=== PATIENT | male | born 1960 | race African-American/Black ===

== ENCOUNTER 2018-06-19 13:20 | Inpatient (IN) | payer OTHER ==
[2018-06-19 14:19] VITALS: BMI 22.9
--- NOTE | 2018-06-19 19:31 | HP ---
CIWA Score Nausea/Vomitin-No Nausea/No Vomiting Muscle Tremors: 2 Anxiety: 2 Agitation: 3 Paroxysmal Sweats: 2 Orientation: 0-Oriented Tacttile Disturbances: 1-Very Mild Itch/Numbness Auditory Disturbances: 0-None Visual Disturbances: 2-Mild Sensitivity Headache: 0-None Present CIWA-Ar Total Score: 12 - Admission Criteria OASAS Guidelines: Admission for Medically Managed Detox: Requires at least one of the followin. CIWA greater than 12 2. Seizures within the past 24 hours 3. Delirium tremens within the past 24 hours 4. Hallucinations within the past 24 hours 5. Acute intervention needed for co occurring medical disorder 6. Acute intervention needed for co occurring psychiatric disorder 7. Severe withdrawal that cannot be handled at a lower level of care (continued vomiting, continued diarrhea, abnormal vital signs) requiring intravenous medication and/or fluids 8. Patient presents the following: CIWA greater than 12, Acute intervention needed for co-occurring med or psych disorder Admission Criteria Met: Admission criteria met Admission ROS BHS - HPI Chief Complaint: "to self aid" Allergies/Adverse Reactions: Allergies Allergy/AdvReac Type Severity Reaction Status Date / Time Fish Containing Products Allergy Severe Verified 06/19/18 17:26 History of Present Illness: 58 yo male with hx of nicotine, alcohol, crack /cocaine and marijuana dependence is here seeking detox. Last detox one month ago, does not recall the name of the facility. Denies medical problems. Reports hx of schizophrenia. Denies suicidal / homicidal ideation. Longest period two years Exam Limitations: No Limitations - Ebola screening Have you traveled outside of the country in the last 21 days: No Have you had contact with anyone from an Ebola affected area: No Have you been sick,other than usual withdrawal symptoms: No Do you have a fever: No - Review of Systems Constitutional: Loss of Appetite, Changes in sleep, Weakness EENT: reports: No Symptoms Reported, See HPI Respiratory: reports: No Symptoms reported Cardiac: reports: No Symptoms Reported GI: reports: Poor Appetite, Poor Fluid Intake : reports: No Symptoms Reported Musculoskeletal: reports: No Symptoms Reported Neuro: reports: Weakness Endocrine: reports: Increased Thirst Hematology: reports: No Symptoms Reported Psychiatric: reports: Orientated x3, Agitated Other Systems: Reviewed and Negative Patient History - Patient Medical History Hx Anemia: No Hx Asthma: No Hx Chronic Obstructive Pulmonary Disease (COPD): No Hx Cancer: No Hx Cardiac Disorders: No Hx Congestive Heart Failure: No Hx Hypertension: No Hx Hypercholesterolemia: No Hx Pacemaker: No HX Cerebrovascular Accident: No Hx Seizures: No Hx Dementia: No Hx Diabetes: No Hx Gastrointestinal Disorders: No Hx Liver Disease: No Hx Genitourinary Disorders: No Hx Sexually Transmitted Disorders: No Hx Renal Disease (ESRD): No Hx Thyroid Disease: No Hx Human Immunodeficiency Virus (HIV): No Hx Hepatitis C: No Hx Depression: Yes Hx Suicide Attempt: No Hx Schizophrenia: Yes - Patient Surgical History Past Surgical History: No Hx Neurologic Surgery: No Hx Cataract Extraction: No Hx Cardiac Surgery: No Hx Lung Surgery: No Hx Breast Surgery: No Hx Breast Biopsy: No Hx Abdominal Surgery: No Hx Appendectomy: No Hx Cholecystectomy: No Hx Genitourinary Surgery: No Hx Section: No Hx Orthopedic Surgery: No Anesthesia Reaction: No - PPD History Previous Implant?: No Documented Results: Negative w/o proof PPD to be Administered?: Yes - Smoking Cessation Smoking history: Current every day smoker Have you smoked in the past 12 months: Yes Aproximately how many cigarettes per day: 5 Hx Chewing Tobacco Use: No Initiated information on smoking cessation: Yes 'Breaking Loose' booklet given: 06/19/18 - Substance & Tx. History Hx Alcohol Use: Yes Hx Substance Use: No Substance Use Type: Alcohol, Cocaine, Marijuana - Substances Abused Alcohol Route: Oral Frequency: Daily Amount used: LIQUOR- 2 PINTS, BEER- 2 SIX PACK Age of first use: 13 Date of Last Use: 06/18/18 Crack Route: Smoking Frequency: Daily Amount used: $60 Age of first use: 25 Date of Last Use: 06/17/18 Marijuana/Hashish Route: Smoking Frequency: Daily Amount used: 1 BLUNT Age of first use: 12 Date of Last Use: 06/18/18 Family Disease History - Family Disease History Family History: Denies Admission Physical Exam S - Vital Signs Vital Signs: Vital Signs - 24 hr 06/19/18 14:14 Temperature 97.9 F Pulse Rate 86 Respiratory 18 Rate Blood Pressure 115/69 - Physical General Appearance: Yes: Disheveled, Thin, Irritable HEENTM: Yes: EOMI, Hearing grossly Normal, Normal ENT Inspection, Normocephalic , Normal Voice, SUE, Pharynx Normal, Tm's normal Respiratory: Yes: Chest Non-Tender, Lungs Clear, Normal Breath Sounds, No Respiratory Distress, No Accessory Muscle Use Neck: Yes: Within Normal Limits Breast: Yes: Breast Exam Deferred Cardiology: Yes: Regular Rhythm, Regular Rate Abdominal: Yes: Normal Bowel Sounds, Non Tender, Flat, Soft Genitourinary: Yes: Within Normal Limits Back: Yes: Normal Inspection Musculoskeletal: Yes: full range of Motion, Gait Steady, Pelvis Stable Extremities: Yes: Normal Capillary Refill, Normal Inspection, Normal Range of Motion, Non-Tender Neurological: Yes: carcass washer II-XII NML intact, Fully Oriented, Alert, Motor Strength 5/5, Depressed Affect Integumentary: Yes: Normal Color, Warm, Moist Lymphatic: Yes: Within Normal Limits - Diagnostic (1) Alcohol dependence with uncomplicated withdrawal Current Visit: Yes Status: Acute (2) Cocaine dependence Current Visit: Yes Status: Acute Qualifiers: Substance use status: uncomplicated Qualified Code(s): F14.20 - Cocaine dependence, uncomplicated (3) Marijuana dependence Current Visit: Yes Status: Acute (4) Nicotine dependence Current Visit: Yes Status: Chronic Qualifiers: Nicotine product type: cigarettes (5) At risk for dehydration due to poor fluid intake Current Visit: Yes Status: Acute Cleared for Admission S - Detox or Rehab [facility] Level of Care: Medically Managed Detox Regimen/Protocol: Librium [facility] Breath Alcohol Content Breath Alcohol Content: 0 Urine Drug Screen - Results Drug Screen Negative: No Urine Drug Screen Results: THC-Marijuana, KWAKU-Cocaine Inpatient Rehab Admission - Rehab Decision to Admit Inpatient rehab admission?: No
[2018-06-19] MEDS ORDERED: P-EPHED 60MG/TRIPROLIDI 2.5MG TABLET PO PRN (19:34)
[2018-06-19] MEDS ORDERED: MAG HYDROX/AL HYDROX/SIMETH 30 ML UNIT-DOSE CUP PO PRN (19:34)
[2018-06-19] MEDS ORDERED: MAGNESIUM CITRATE 300 ML BOTTLE PO PRN (19:34)
[2018-06-19] MEDS ORDERED: guaiFENesin/D-METHORPHAN HB 10 ML UNIT-DOSE CUPS PO PRN (19:34)
[2018-06-19] MEDS ORDERED: MAGNESIUM HYDROX 2400MG/30ML ORAL SUSPENSION 30 ML CUP PO PRN (19:34)
[2018-06-19] MEDS ORDERED: IBUPROFEN 400 MG TABLET (FP) PO PRN (19:34)
[2018-06-19] MEDS ORDERED: hydrOXYzine PAMOATE 50 MG CAPSULE (FP) PO PRN (19:34)
[2018-06-19] MEDS ORDERED: NICOTINE POLACRILEX 2 MG GUM BC PRN (19:34)
[2018-06-19] MEDS ORDERED: chlordiazePOXIDE HCL 25 MG CAPSULE PO PRN (19:34)
[2018-06-19] MEDS ORDERED: MENTHOL/PHENOL 1 EACH UD MM PRN (19:34)
[2018-06-19] MEDS ORDERED: ACETAMINOPHEN 325 MG TABLET (FP) PO PRN (19:34)
[2018-06-19] MEDS ORDERED: LOPERAMIDE HCL 2 MG CAPSULE PO PRN (19:34)
[2018-06-19] MEDS ORDERED: MELATONIN 5 MG TABLETS PO PRN (22:00)
[2018-06-19] MEDS: chlordiazePOXIDE HCL 25 MG CAPSULE PO SCH (23:07)
[2018-06-19] MEDS: THIAMINE HCL 100 MG TABLET (FP) PO SCH (23:07)
[2018-06-19 23:27] LABS: URINE APPEARANCE CLEAR; URINE BILIRUBIN NEGATIVE (<2.0 mg/dL); URINE COLOR YELLOW; URINE GLUCOSE (UA) NEGATIVE (NEGATIVE); URINE KETONE NEGATIVE (NEGATIVE); URINE LEUK ESTERASE NEGATIVE (NEGATIVE); URINE NITRITE NEGATIVE (NEGATIVE); URINE PROTEIN NEGATIVE (NEGATIVE)
[2018-06-20] MEDS: chlordiazePOXIDE HCL 25 MG CAPSULE PO SCH ×4 (06:13→22:48)
--- NOTE | 2018-06-20 07:35 | CONSULT ---
[facility] Psychiatric Consult - Data Date of interview: 06/20/18 Admission source: [facility] Identifying data: 58 yo male with hx of nicotine, alcohol, crack /cocaine and marijuana dependence is here seeking detox. Last detox one month ago, does not recall the name of the facility. Denies medical problems. Reports hx of schizophrenia. Denies suicidal / homicidal ideation. Longest period two years. Exam Limitations: No Limitations Substance Abuse History: y: Current every day smoker. Have you smoked in the past 12 months: Yes. Aproximately how many cigarettes per day: 5. Hx Chewing Tobacco Use: No. Initiated information on smoking cessation: Yes. 'Breaking Loose' booklet given: 06/19/18. - Substance & Tx. History. Hx Alcohol Use: Yes. Hx Substance Use: No. Substance Use Type: Alcohol, Cocaine, Marijuana. - Substances Abused. Alcohol. Route: Oral. Frequency: Daily. Amount used : LIQUOR- 2 PINTS, BEER- 2 SIX PACK. Age of first use: 13. Date of Last Use: 06/18/18. Crack. Route: Smoking. Frequency: Daily. Amount used: $60. Age of first use: 25. Date of Last Use: 06/17/18. Marijuana/Hashish. Route : Smoking. Frequency: Daily. Amount used: 1 BLUNT. Age of first use: 12. Date of Last Use: 06/18/18 Medical History: Denies any significant medical issues Psychiatric History: Patient has a history of Schizophrenia with most recent psychiatric admission on 2015, patient does not remeber when and where, reports hearing voices at that time, denies suicidal and homicidal history, As per lalito patient has been taking : Remeron 45mg po qhs. Risperdal 1mg po bid. Patioent refusing to rerstart psychiatric medications Physical/Sexual Abuse/Trauma History: Denies, unclear Additional Comment: Remeron 45mg po qhs. Risperdal 1mg po bid. Patioent refusing to rerstart psychiatric medications Mental Status Exam - Mental Status Exam Alert and Oriented to: Person Cognitive Function: Fair Patient Appearance: Unkempt Mood: Anxious Affect: Constricted Patient Behavior: Guarded, Distractible Speech Pattern: Pressured Voice Loudness: Mildly Loud Thought Process: Circumstantial, Goal Oriented Hallucinations: Denies Suicidal Ideation: Denies Homicidal Ideation: Denies Insight/Judgement: Fair Sleep: Difficulty falling asleep Appetite: Fair Muscle strength/Tone: Normal Gait/Station: Shuffling Additional Comments: Remeron 45mg po qhs. Risperdal 1mg po bid. Patioent refusing to rerstart psychiatric medications Psychiatric Findings - Problem List ([place] 1, 2,3) (1) Drug-induced mood disorder Current Visit: Yes Status: Acute (2) Schizophrenia Current Visit: Yes Status: Acute (3) Alcohol dependence with uncomplicated withdrawal Current Visit: Yes Status: Acute (4) Cocaine dependence Current Visit: Yes Status: Acute Qualifiers: Substance use status: uncomplicated Qualified Code(s): F14.20 - Cocaine dependence, uncomplicated (5) Marijuana dependence Current Visit: Yes Status: Acute (6) Nicotine dependence Current Visit: Yes Status: Chronic Qualifiers: Nicotine product type: cigarettes (7) Non compliance w medication regimen Current Visit: Yes Status: Acute - Initial Treatment Plan Initial Treatment Plan: Consider to restart : Remeron 45mg po qhs. Risperdal 1mg po bid. Patioent refusing to rerstart psychiatric medications at this moment
[2018-06-20 10:34] LABS: HEMATOCRIT 39.5 % (35.4-49); HEMOGLOBIN 13.2 GM/dL (11.7-16.9); MCHC 33.4 g/dl (32.0-35.9); MEAN CELL VOLUME 89.8 fl (80-96); MEAN PLT VOLUME 8.1 fl (7.5-11.1); PLATELET COUNT 236 K/MM3 (134-434); RDW 13.9 % (11.9-15.9)
[2018-06-20 10:46] LABS: ALK PHOS 78 U/L (45-117); ANION GAP 8 MMOL/L (8-16); BILIRUBIN,TOTAL 0.2 mg/dL (0.2-1); BLOOD UREA NITROGEN 14 mg/dL (7-18); CALCIUM 8.5 mg/dL (8.5-10.1); CHLORIDE 105 mmol/L (98-107); CO2 27 mmol/L (21-32); GLUCOSE,RANDOM 114 mg/dL (74-106); SGOT/AST 14 U/L (15-37); SGPT/ALT 18 U/L (13-61); SODIUM 140 mmol/L (136-145); TOT PROT 6.4 g/dl (6.4-8.2)
[2018-06-20] MEDS: PRENATAL VITAMINS W/ FOLIC ACID TABLET (FP) PO SCH (11:40)
[2018-06-20] MEDS: NICOTINE 14 MG/24 HOURS TOPICAL PATCH TD SCH (11:40)
[2018-06-20] MEDS: risperiDONE 1 MG TABLET (FP) PO SCH ×2 (13:38→22:50)
[2018-06-20] MEDS: MIRTAZAPINE 15 MG TABLET (FP) PO SCH (13:38)
--- NOTE | 2018-06-20 14:20 | PN ---
[facility] CIWA - CIWA Score Nausea/Vomitin-No Nausea/No Vomiting Muscle Tremors: None Anxiety: 2 Agitation: 0-Normal Activity Paroxysmal Sweats: 3 Orientation: 0-Oriented Tacttile Disturbances: 2-Mild Itch/Numbness/Burn Auditory Disturbances: 0-None Visual Disturbances: 2-Mild Sensitivity Headache: 0-None Present CIWA-Ar Total Score: 9 BHS Progress Note (SOAP) Subjective: Fatigue, Sweating, Anxious. Objective: PATIENT A & O X 2 (UNCERTAIN ABOUT CURRENT DAY / DATE). PATIENT OBSERVED AMBULATING ON UNIT. IN NO ACUTE DISTRESS. 06/20/18 14:22 Vital Signs Temperature 98.3 F 06/20/18 13:13 Pulse Rate 76 06/20/18 13:13 Respiratory Rate 18 06/20/18 13:13 Blood Pressure 124/67 06/20/18 13:13 O2 Sat by Pulse Oximetry (%) Laboratory Tests 06/19/18 06/20/18 06/20/18 23:20 07:00 07:00 WBC 8.0 RBC 4.40 Hgb 13.2 Hct 39.5 MCV 89.8 MCH 30.0 MCHC 33.4 RDW 13.9 Plt Count 236 MPV 8.1 Sodium Potassium Chloride Carbon Dioxide Anion Gap BUN Creatinine Creat Clearance w eGFR Random Glucose Calcium Total Bilirubin AST ALT Alkaline Phosphatase Total Protein Albumin Urine Color Yellow Urine Appearance Clear Urine pH 6.0 Ur Specific [place] 1.023 Urine Protein Negative Urine Glucose (UA) Negative Urine Ketones Negative Urine Blood Negative Urine Nitrite Negative Urine Bilirubin Negative Urine Urobilinogen 2.0 Ur Leukocyte Esterase Negative RPR Titer HIV 1&2 Antibody Screen Negative HIV P24 Antigen Negative 06/20/18 06/20/18 07:00 07:00 WBC RBC Hgb Hct MCV MCH MCHC RDW Plt Count MPV Sodium 140 Potassium 4.0 Chloride 105 Carbon Dioxide 27 Anion Gap 8 BUN 14 Creatinine 1.0 Creat Clearance w eGFR > 60 Random Glucose 114 H Calcium 8.5 Total Bilirubin 0.2 AST 14 L ALT 18 Alkaline Phosphatase 78 Total Protein 6.4 Albumin 3.0 L Urine Color Urine Appearance Urine pH Ur Specific [place] Urine Protein Urine Glucose (UA) Urine Ketones Urine Blood Urine Nitrite Urine Bilirubin Urine Urobilinogen Ur Leukocyte Esterase RPR Titer Nonreactive HIV 1&2 Antibody Screen HIV P24 Antigen LABS NOTED. Assessment: 06/20/18 14:22 WITHDRAWAL SYMPTOMS. Plan: CONTINUE DETOX. INCREASE DAILY PO FLUID INTAKE. PATIENT REPORTS THAT LIBRIUM IS CAUSING HIM TO FEEL EXCESSIVELY DROWSY. UPCOMING DOSAGES OF LIBRIUM MODIFIED TO SLIGHTLY LOWER DOSES FOR REMAINDER OF DETOX REGIMEN.
[2018-06-20] MEDS: THIAMINE HCL 100 MG TABLET (FP) PO SCH (22:48)
[2018-06-20] MEDS ORDERED: chlordiazePOXIDE HCL 25 MG CAPSULE PO SCH (23:00)
[2018-06-21] MEDS: chlordiazePOXIDE 5 MG CAPSULE PO SCH ×4 (05:50→22:56)
--- NOTE | 2018-06-21 09:35 | PN ---
S CIWA - CIWA Score Nausea/Vomitin Muscle Tremors: 2 Anxiety: 2 Agitation: 2 Paroxysmal Sweats: 1-Minimal Palms Moist Orientation: 0-Oriented Tacttile Disturbances: 1-Very Mild Itch/Numbness Auditory Disturbances: 1-Very Mild Visual Disturbances: 0-None Headache: 2-Mild CIWA-Ar Total Score: 13 BHS Progress Note (SOAP) Subjective: alert,irritable,interrupted sleep,tremor Objective: 06/21/18 09:34 Vital Signs Temperature 98.9 F 06/21/18 09:22 Pulse Rate 77 06/21/18 09:22 Respiratory Rate 18 06/21/18 09:22 Blood Pressure 119/71 06/21/18 09:22 O2 Sat by Pulse Oximetry (%) Assessment: 06/21/18 09:35 withdrawal symptom Plan: continue detox,fasting glucose in am ,initial glucose is 111
--- NOTE | 2018-06-21 10:13 | EKG ---
Test Reason : Blood Pressure : / mmHG Vent. Rate : 077 BPM Atrial Rate : 077 BPM P-R Int : 152 ms QRS Dur : 088 ms QT Int : 392 ms P-R-T Axes : 065 082 065 degrees QTc Int : 443 ms NORMAL SINUS RHYTHM EARLY REPOLARIZATION NO PREVIOUS ECGS AVAILABLE Confirmed by GUIDO SHORT MD ([id number]) on 06/21/2018 10:13:35 AM Referred By: Confirmed By:GUIDO SHORT MD
[2018-06-21] MEDS: risperiDONE 1 MG TABLET (FP) PO SCH ×2 (10:29→22:58)
[2018-06-21] MEDS: PRENATAL VITAMINS W/ FOLIC ACID TABLET (FP) PO SCH (10:29)
[2018-06-21] MEDS: MIRTAZAPINE 15 MG TABLET (FP) PO SCH (10:30)
[2018-06-21] MEDS: NICOTINE 14 MG/24 HOURS TOPICAL PATCH TD SCH (10:30)
[2018-06-21] MEDS: THIAMINE HCL 100 MG TABLET (FP) PO SCH (22:55)
[2018-06-21] MEDS ORDERED: chlordiazePOXIDE 5 MG CAPSULE PO SCH (23:00)
[2018-06-22] MEDS: chlordiazePOXIDE HCL 10 MG CAPSULE PO SCH ×4 (06:00→22:15)
[2018-06-22] MEDS: PRENATAL VITAMINS W/ FOLIC ACID TABLET (FP) PO SCH (11:05)
[2018-06-22] MEDS: NICOTINE 14 MG/24 HOURS TOPICAL PATCH TD SCH (11:05)
[2018-06-22] MEDS: risperiDONE 1 MG TABLET (FP) PO SCH ×2 (11:05→22:15)
[2018-06-22] MEDS: MIRTAZAPINE 15 MG TABLET (FP) PO SCH (11:06)
--- NOTE | 2018-06-22 14:17 | PN ---
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
[2018-06-22] MEDS: THIAMINE HCL 100 MG TABLET (FP) PO SCH (22:15)
[2018-06-22] MEDS ORDERED: chlordiazePOXIDE HCL 10 MG CAPSULE PO SCH (23:00)
[2018-06-23] MEDS: risperiDONE 1 MG TABLET (FP) PO SCH (11:00)
[2018-06-23] MEDS: PRENATAL VITAMINS W/ FOLIC ACID TABLET (FP) PO SCH (11:00)
[2018-06-23] MEDS: MIRTAZAPINE 15 MG TABLET (FP) PO SCH (11:01)
[2018-06-23] MEDS: NICOTINE 14 MG/24 HOURS TOPICAL PATCH TD SCH (11:01)
--- NOTE | 2018-06-23 12:55 | DS ---
[facility] Detox Discharge Summary Admission Date: 06/19/18 Discharge Date: 06/23/18 - History Present History: Alcohol Dependence, Cannabis Dependence, Cocaine Dependence Additional Comments: Patient completed detox successfully and accepted admission to [facility]. Patient is A/A/Ox3, in nad, vss, ambulatory. Patient stable for discharge to [facility] today. Patient requested antifungal cream for his feet. Ordered for clotrimazole cream bid x 14 days. Pertinent Past History: Nicotine dependence Alcohol dependence Crack/cocaine dependence Cannabis dependence Depression Schizophrenia - Physical Exam Results Vital Signs: Vital Signs Temperature 98.2 F 06/23/18 07:03 Pulse Rate 71 06/23/18 07:03 Respiratory Rate 18 06/23/18 07:03 Blood Pressure 120/80 06/23/18 07:03 O2 Sat by Pulse Oximetry (%) Pertinent Admission Physical Exam Findings: Withdrawal symptoms Laboratory Tests 06/19/18 06/20/18 06/20/18 23:20 07:00 07:00 WBC 8.0 RBC 4.40 Hgb 13.2 Hct 39.5 MCV 89.8 MCH 30.0 MCHC 33.4 RDW 13.9 Plt Count 236 MPV 8.1 Sodium Potassium Chloride Carbon Dioxide Anion Gap BUN Creatinine Creat Clearance w eGFR POC Glucometer Random Glucose Calcium Total Bilirubin AST ALT Alkaline Phosphatase Total Protein Albumin Urine Color Yellow Urine Appearance Clear Urine pH 6.0 Ur Specific [place] 1.023 Urine Protein Negative Urine Glucose (UA) Negative Urine Ketones Negative Urine Blood Negative Urine Nitrite Negative Urine Bilirubin Negative Urine Urobilinogen 2.0 Ur Leukocyte Esterase Negative RPR Titer HIV 1&2 Antibody Screen Negative HIV P24 Antigen Negative 06/20/18 06/20/18 06/22/18 07:00 07:00 06:02 WBC RBC Hgb Hct MCV MCH MCHC RDW Plt Count MPV Sodium 140 Potassium 4.0 Chloride 105 Carbon Dioxide 27 Anion Gap 8 BUN 14 Creatinine 1.0 Creat Clearance w eGFR > 60 POC Glucometer 85 Random Glucose 114 H Calcium 8.5 Total Bilirubin 0.2 AST 14 L ALT 18 Alkaline Phosphatase 78 Total Protein 6.4 Albumin 3.0 L Urine Color Urine Appearance Urine pH Ur Specific [place] Urine Protein Urine Glucose (UA) Urine Ketones Urine Blood Urine Nitrite Urine Bilirubin Urine Urobilinogen Ur Leukocyte Esterase RPR Titer Nonreactive HIV 1&2 Antibody Screen HIV P24 Antigen Labs reviewed - Treatment Hospital Course: Detox Protocol Followed, Detoxed Safely, Responded well, Discharged Condition Good, Rehab Referral Accepted - Medication Discharge Medications: Ambulatory Orders Mirtazapine [Remeron -] 45 mg PO DAILY #30 tablet 06/20/18 Risperidone [Risperdal -] 1 mg PO BID #60 tablet 06/20/18 - Diagnosis (1) Depression Current Visit: Yes Status: Chronic (2) Alcohol dependence with uncomplicated withdrawal Current Visit: Yes Status: Acute (3) Cocaine dependence Current Visit: Yes Status: Chronic Qualifiers: Substance use status: uncomplicated Qualified Code(s): F14.20 - Cocaine dependence, uncomplicated (4) Marijuana dependence Current Visit: Yes Status: Chronic (5) Schizophrenia Current Visit: Yes Status: Chronic (6) Nicotine dependence Current Visit: Yes Status: Chronic Qualifiers: Nicotine product type: cigarettes (7) Tinea pedis of both feet Current Visit: Yes Status: Acute - AMA Did Patient Leave Against Medical Advice: No ([facility])
[2018-06-23] MEDS ORDERED: CLOTRIMAZOLE 1% CREAM 15 GM TUBE TP SCH (13:00)
[2018-06-23 17:32] VITALS: BP 110/70; PULSE 80; TEMP 97.8
== END 2018-06-23 18:05 | disposition other institution (70) | DRG 774 ==
LOC: YASAS 13:20 → Y6N 19:58
PROVIDERS: ADMIT Surgery; ATTEND Surgery
PROC: HZ2ZZZZ Detoxification Services for Substance Abuse Treatment (ICD-10-PCS; principal; 2018-06-19)
DX: F10.230 Alcohol dependence with withdrawal, uncomplicated (principal); F14.20 Cocaine dependence, uncomplicated; F12.20 Cannabis dependence, uncomplicated; F17.210 Nicotine dependence, cigarettes, uncomplicated; F32.9 Major depressive disorder, single episode, unspecified; F20.9 Schizophrenia, unspecified; F19.24 Other psychoactive substance dependence with psychoactive substance-induced mood disorder; B35.3 Tinea pedis; Z91.14 Patient's other noncompliance with medication regimen; Z91.013 Allergy to seafood; Z59.0 Homelessness
CPT/HCPCS: 36415; 80053; 81003; 82962; 85027; 86593; 87389; 93005; 93010; J2794

== ENCOUNTER 2018-06-23 18:19 | Inpatient (IN) | payer OTHER ==
--- NOTE | 2018-06-23 20:36 | HP ---
[facility] Rehab Assess/Revision - Admission History Admitted to Rehab from: [facility] Date of Admission to Rehab: 06/23/18 - Findings Detox History & Physical reviewed: Yes Concur with findings: Yes Comments/Additional Findings: for rehab as protocol Inpatient Rehab Admission - Rehab Decision to Admit Inpatient rehab admission?: Yes - Initial Determination Are CD services needed?: Yes Free of communicable disease: Yes Not in need of hospitalization: Yes - Rehab Admission Criteria Previous failed treatment: Yes Poor recovery environment: Yes Comorbidities: Yes Lacks judgement: No Patient is meeting Inpatient Rehab admission criteria:: Yes
[2018-06-23] MEDS ORDERED: MAG HYDROX/AL HYDROX/SIMETH 30 ML UNIT-DOSE CUP PO PRN (20:37)
[2018-06-23] MEDS ORDERED: hydrOXYzine PAMOATE 50 MG CAPSULE (FP) PO PRN (20:37)
[2018-06-23] MEDS ORDERED: NICOTINE POLACRILEX 2 MG GUM BUC PRN (20:37)
[2018-06-23] MEDS ORDERED: MAGNESIUM CITRATE 300 ML BOTTLE PO PRN ×2 (20:37)
[2018-06-23] MEDS ORDERED: IBUPROFEN 400 MG TABLET (FP) PO PRN (20:37)
[2018-06-23] MEDS ORDERED: MENTHOL/PHENOL 1 EACH UD MM PRN ×2 (20:37)
[2018-06-23] MEDS ORDERED: guaiFENesin/D-METHORPHAN HB 10 ML UNIT-DOSE CUPS PO PRN ×2 (20:37)
[2018-06-23] MEDS ORDERED: LOPERAMIDE HCL 2 MG CAPSULE PO PRN ×2 (20:37)
[2018-06-23] MEDS ORDERED: ACETAMINOPHEN 325 MG TABLET (FP) PO PRN (20:37)
[2018-06-23] MEDS ORDERED: MAGNESIUM HYDROX 2400MG/30ML ORAL SUSPENSION 30 ML CUP PO PRN ×2 (20:37)
[2018-06-23] MEDS ORDERED: P-EPHED 60MG/TRIPROLIDI 2.5MG TABLET PO PRN ×2 (20:37)
[2018-06-23] MEDS: MELATONIN 5 MG TABLETS PO PRN (21:26)
[2018-06-23] MEDS: THIAMINE HCL 100 MG TABLET (FP) PO SCH (21:27)
[2018-06-23] MEDS ORDERED: MELATONIN 5 MG TABLETS PO PRN (22:00)
[2018-06-23] MEDS ORDERED: THIAMINE HCL 100 MG TABLET (FP) PO SCH (22:00)
[2018-06-24] MEDS ORDERED: PRENATAL VITAMINS W/ FOLIC ACID TABLET (FP) PO SCH (10:00)
[2018-06-24] MEDS: NICOTINE 14 MG/24 HOURS TOPICAL PATCH TD SCH (10:54)
[2018-06-24] MEDS: PRENATAL VITAMINS W/ FOLIC ACID TABLET (FP) PO SCH (10:54)
[2018-06-24] MEDS: THIAMINE HCL 100 MG TABLET (FP) PO SCH (21:05)
[2018-06-24] MEDS: MELATONIN 5 MG TABLETS PO PRN (22:38)
[2018-06-25] MEDS: MAG HYDROX/AL HYDROX/SIMETH 30 ML UNIT-DOSE CUP PO PRN ×2 (03:47→11:46)
--- NOTE | 2018-06-25 06:03 | CONSULT ---
[facility] Psychiatric Consult - Data Date of interview: 06/25/18 Admission source: 6N Identifying data: Mr Storey is a 58 years old Black male, father of 3 children, unemployed with no source of income, homeless seeking inpatient rehab treatment for alcohol, cocaine and cannabis Substance Abuse History: Reports history of alcohol, cocaine and marijuana. Refer to addiction counselor's summary for further information Medical History: Unremarkable except abdominal surgery couple of years ago. Smokes 5 cigarettes Psychiatric History: Patient is a very irritable and reluctant historian. Reports that he was diagnosed with Schizophrenia in 2012 and has had 3-4 previous psychiatric inpatient hospitalizations. He is reluctant to provide information about his psychiatric treatment other than saying that he used to take Risperdal and Remeron and stopped taking them a year ago. He saw Dr Gutierrez on 06/20/18 while in detox and declined to resume medications. Denies previous suicidal attempt. At present, patient is very irritable and reports sleeping poorly. He accepts to take Seroquel for insomnia Physical/Sexual Abuse/Trauma History: Patient is very irritable and told keno writer that he does not want to talk about his childhood Additional Comment: Declined to talk about other issues including legal Mental Status Exam - Mental Status Exam Alert and Oriented to: Time, Place, Person Cognitive Function: Fair Patient Appearance: Well Groomed Mood: Depressed, Irritable Affect: Appropriate Speech Pattern: Clear Voice Loudness: Normal Thought Process: Intact, Goal Oriented Hallucinations: Denies Suicidal Ideation: Denies Homicidal Ideation: Denies Insight/Judgement: Fair Sleep: Poorly Appetite: Good Muscle strength/Tone: Normal Gait/Station: Normal Psychiatric Findings - Problem List ([place] 1, 2,3) (1) Schizophrenia Current Visit: No Status: Chronic (2) Substance induced mood disorder Current Visit: Yes Status: Acute (3) Substance-induced sleep disorder Current Visit: Yes Status: Acute (4) Alcohol dependence Current Visit: Yes Status: Acute (5) Cocaine dependence Current Visit: No Status: Acute Qualifiers: Substance use status: uncomplicated Qualified Code(s): F14.20 - Cocaine dependence, uncomplicated (6) Cannabis dependence Current Visit: Yes Status: Acute (7) Nicotine dependence Current Visit: No Status: Chronic Qualifiers: Nicotine product type: cigarettes - Initial Treatment Plan Initial Treatment Plan: 1) Start Seroquel 100 mg po HS. Benefit vs Risks of medication discussed with patient and he agreed with plan. 2) Continue inpatient rehabilitation
[2018-06-25] MEDS: PRENATAL VITAMINS W/ FOLIC ACID TABLET (FP) PO SCH (10:02)
[2018-06-25] MEDS: NICOTINE 14 MG/24 HOURS TOPICAL PATCH TD SCH (10:03)
[2018-06-25] MEDS: THIAMINE HCL 100 MG TABLET (FP) PO SCH (21:02)
[2018-06-25] MEDS: MELATONIN 5 MG TABLETS PO PRN (21:03)
[2018-06-25] MEDS: QUEtiapine FUMARATE 100 MG TABLET (FP) PO SCH (21:58)
[2018-06-26] MEDS: NICOTINE 14 MG/24 HOURS TOPICAL PATCH TD SCH (10:22)
[2018-06-26] MEDS: PRENATAL VITAMINS W/ FOLIC ACID TABLET (FP) PO SCH (10:35)
[2018-06-26] MEDS: MELATONIN 5 MG TABLETS PO PRN (21:18)
[2018-06-26] MEDS: THIAMINE HCL 100 MG TABLET (FP) PO SCH (21:18)
[2018-06-26] MEDS: QUEtiapine FUMARATE 100 MG TABLET (FP) PO SCH (21:18)
[2018-06-27] MEDS: IBUPROFEN 400 MG TABLET (FP) PO PRN ×2 (09:18→21:31)
[2018-06-27] MEDS: NICOTINE 14 MG/24 HOURS TOPICAL PATCH TD SCH (09:20)
[2018-06-27] MEDS: PRENATAL VITAMINS W/ FOLIC ACID TABLET (FP) PO SCH (09:20)
[2018-06-27] MEDS: ACETAMINOPHEN 325 MG TABLET (FP) PO PRN (14:26)
[2018-06-27] MEDS: MAG HYDROX/AL HYDROX/SIMETH 30 ML UNIT-DOSE CUP PO PRN (16:03)
[2018-06-27] MEDS: THIAMINE HCL 100 MG TABLET (FP) PO SCH (21:31)
[2018-06-27] MEDS: MELATONIN 5 MG TABLETS PO PRN (21:32)
[2018-06-27] MEDS: QUEtiapine FUMARATE 100 MG TABLET (FP) PO SCH (21:33)
[2018-06-28] MEDS: ACETAMINOPHEN 325 MG TABLET (FP) PO PRN ×2 (06:46→16:50)
[2018-06-28] MEDS: PRENATAL VITAMINS W/ FOLIC ACID TABLET (FP) PO SCH (09:37)
--- NOTE | 2018-06-28 09:40 | PN ---
S Progress Note Note: Patient c/o toothache, pain level 6/10. Has upper partials which is rubbing against gums. Patient denies headache, earache and sore throat. Vital Signs Temperature 99.1 F 06/28/18 06:56 Pulse Rate 75 06/28/18 06:56 Respiratory Rate 18 06/28/18 06:56 Blood Pressure 130/81 06/28/18 06:56 O2 Sat by Pulse Oximetry (%) PE: Alert and oriented x 3 skin warm and dry mouth + sore noted at right upper posterior gum line, mild surrounding inflammation, +tenderness ext full rom, amb ad capo a/p: oral sores/infection oragel prn start zpak 500mg daily x 3 days apap continued prn monitor clinically
[2018-06-28] MEDS: AZITHROMYCIN 250 MG TABLET PO SCH (09:41)
[2018-06-28] MEDS: BENZOCAINE 20 % GEL TUBE MM PRN ×2 (09:52→15:33)
[2018-06-28] MEDS: NICOTINE 14 MG/24 HOURS TOPICAL PATCH TD SCH (09:52)
[2018-06-28] MEDS ORDERED: AZITHROMYCIN 500 MG TABLET PO SCH (10:00)
[2018-06-28] MEDS: QUEtiapine FUMARATE 100 MG TABLET (FP) PO SCH (23:21)
[2018-06-28] MEDS: THIAMINE HCL 100 MG TABLET (FP) PO SCH (23:21)
[2018-06-29] MEDS: IBUPROFEN 400 MG TABLET (FP) PO PRN ×3 (00:12→12:29)
[2018-06-29] MEDS: ACETAMINOPHEN 325 MG TABLET (FP) PO PRN ×3 (08:34→23:47)
[2018-06-29] MEDS: AZITHROMYCIN 250 MG TABLET PO SCH (09:24)
[2018-06-29] MEDS: NICOTINE 14 MG/24 HOURS TOPICAL PATCH TD SCH (09:24)
[2018-06-29] MEDS: PRENATAL VITAMINS W/ FOLIC ACID TABLET (FP) PO SCH (09:24)
[2018-06-29] MEDS: BENZOCAINE 20 % GEL TUBE MM PRN (11:05)
[2018-06-29] MEDS ORDERED: IBUPROFEN 600 MG TABLET (FP) PO ONE ×2 (12:38→12:45)
--- NOTE | 2018-06-29 12:38 | PN ---
[facility] Progress Note Note: pt c/o toothache right upper , reports was told by dentist that his partial denture has to be removed and cleaned in 2002 while incarcerated , did not follow up . Requesting increased ibuprofen dosage Agreeable w/ 600 mg Ibuprofen , cold pack and to advise nursing if pain worsens . Active Medications Acetaminophen (Tylenol -) 650 mg PO Q4H PRN PRN Reason: FEVER Last Admin: 06/29/18 08:34 Dose: 650 mg Al Hydroxide/Mg Hydroxide (Mylanta Oral Suspension -) 30 ml PO Q6H PRN PRN Reason: DYSPEPSIA Last Admin: 06/27/18 16:03 Dose: 30 ml Azithromycin (Zithromax -) 500 mg PO DAILY REAGAN Stop: 06/30/18 10:01 Last Admin: 06/29/18 09:24 Dose: 500 mg Benzocaine (Anbesol -) 1 applic MM Q6H PRN PRN Reason: ORAL PAIN/MOUTH SORES Last Admin: 06/29/18 11:05 Dose: 1 applic Eucalyptus/Menthol/Phenol/Sorbitol (Cepastat Lozenge -) 1 each MM Q4H PRN PRN Reason: SORE THROAT Guaifenesin (Robitussin Dm -) 10 ml PO Q6H PRN PRN Reason: COUGH Hydroxyzine Pamoate (Vistaril -) 50 mg PO Q4H PRN PRN Reason: AGITATION Ibuprofen (Motrin -) 600 mg PO Q6H PRN PRN Reason: Pain Level 4-6 Loperamide HCl (Imodium -) 4 mg PO Q6H PRN PRN Reason: DIARRHEA Magnesium Citrate (Citroma -) 300 ml PO Q48H PRN PRN Reason: CONSTIPATION Magnesium Hydroxide (Milk Of Magnesia -) 30 ml PO DAILY PRN PRN Reason: CONSTIPATION Last Admin: 06/29/18 03:15 Dose: 30 ml Melatonin (Melatonin) 5 mg PO HS PRN PRN Reason: INSOMNIA Last Admin: 06/27/18 21:32 Dose: 5 mg Nicotine (Nicoderm Patch -) 14 mg TD DAILY REAGAN Last Admin: 06/29/18 09:24 Dose: Not Given Nicotine Polacrilex (Nicorette Gum -) 2 mg BUC Q2H PRN PRN Reason: NICOTINE REPLACEMENT RX Multivit/Folic Acid/Iron ( Vitamins (Sjr) -) 1 tab PO DAILY [facility] Last Admin: 06/29/18 09:24 Dose: 1 tab Pseudoephedrine/Triprolidine (Actifed -) 1 combo PO TID PRN PRN Reason: NASAL CONGESTION Quetiapine Fumarate (Seroquel -) 100 mg PO [facility] Last Admin: 06/28/18 23:21 Dose: Not Given Thiamine HCl (Vitamin B1 -) 100 mg PO [facility] Last Admin: 06/28/18 23:21 Dose: Not Given
[2018-06-29] MEDS: IBUPROFEN 600 MG TABLET (FP) PO PRN (18:24)
[2018-06-29] MEDS: THIAMINE HCL 100 MG TABLET (FP) PO SCH (22:01)
[2018-06-29] MEDS: QUEtiapine FUMARATE 100 MG TABLET (FP) PO SCH (22:01)
[2018-06-30] MEDS: IBUPROFEN 600 MG TABLET (FP) PO PRN ×4 (00:33→21:17)
[2018-06-30] MEDS: ACETAMINOPHEN 325 MG TABLET (FP) PO PRN ×2 (07:19→12:49)
[2018-06-30] MEDS: NICOTINE 14 MG/24 HOURS TOPICAL PATCH TD SCH (10:00)
[2018-06-30] MEDS: AZITHROMYCIN 250 MG TABLET PO SCH (10:00)
[2018-06-30] MEDS: PRENATAL VITAMINS W/ FOLIC ACID TABLET (FP) PO SCH (10:00)
[2018-06-30] MEDS: BENZOCAINE 20 % GEL TUBE MM PRN (12:51)
[2018-06-30] MEDS: THIAMINE HCL 100 MG TABLET (FP) PO SCH (21:16)
[2018-06-30] MEDS: QUEtiapine FUMARATE 100 MG TABLET (FP) PO SCH (21:16)
[2018-07-01] MEDS: MAG HYDROX/AL HYDROX/SIMETH 30 ML UNIT-DOSE CUP PO PRN (01:31)
[2018-07-01] MEDS: ACETAMINOPHEN 325 MG TABLET (FP) PO PRN (05:40)
[2018-07-01] MEDS: BENZOCAINE 20 % GEL TUBE MM PRN (08:32)
[2018-07-01] MEDS: IBUPROFEN 600 MG TABLET (FP) PO PRN ×3 (08:33→23:31)
[2018-07-01] MEDS: NICOTINE 14 MG/24 HOURS TOPICAL PATCH TD SCH (10:16)
[2018-07-01] MEDS: PRENATAL VITAMINS W/ FOLIC ACID TABLET (FP) PO SCH (10:16)
--- NOTE | 2018-07-01 15:58 | PN ---
[facility] Progress Note Note: REHAB DISCHARGE NOTE: PATIENT TO BE DISCHARGED TOMORROW FROM REHAB AND TO FOLLOW UP WITH CASES PROGRAM TOMORROW AFTER D/C. PATIENT STATES HE ACHIEVED ALL REHAB GOALS AND EDUCATED REGARDING IMPORTANCE OF CONTINUING GROUP MEETINGS TO PREVENT RELAPSE. PATIENT IS MEDICALLY STABLE AT THIS TIME, DENIES SI/HI AND ENCOURAGED TO FOLLOW UP WITH PCP WITHIN ONE WEEK OF DISCHARGE. HOME MEDICATIONS REVIEWED. VITAL SIGNS REMAIN STABLE. Vital Signs Temperature 98.3 F 07/01/18 06:27 Pulse Rate 80 07/01/18 06:27 Respiratory Rate 18 07/01/18 06:27 Blood Pressure 117/80 07/01/18 06:27 O2 Sat by Pulse Oximetry (%) Ambulatory Orders Mirtazapine [Remeron -] 45 mg PO DAILY #30 tablet 06/20/18 Risperidone [Risperdal -] 1 mg PO BID #60 tablet 06/20/18
[2018-07-01] MEDS ORDERED: TOLNAFTATE 1% CREAM 15 GM TUBE TP SCH (22:00)
[2018-07-01] MEDS: QUEtiapine FUMARATE 100 MG TABLET (FP) PO SCH (23:05)
[2018-07-01] MEDS: THIAMINE HCL 100 MG TABLET (FP) PO SCH (23:05)
[2018-07-02 06:33] VITALS: BP 115/75; PULSE 81; TEMP 98
--- NOTE | 2018-07-02 07:48 | PN ---
S Progress Note Note: Patient is discharged today. Script for 30 days supply of Seroquel 100 mg po HS is electronically transmitted to [facility]
[2018-07-02] MEDS: IBUPROFEN 600 MG TABLET (FP) PO PRN (08:38)
== END 2018-07-02 09:35 | disposition home or self-care (01) | DRG 772 ==
LOC: YASAS 18:19 → Y3W 18:22
PROVIDERS: ADMIT Neuromusculoskeletal Medicine & OMM; ATTEND Neuromusculoskeletal Medicine & OMM
PROC: HZ42ZZZ Group Counseling for Substance Abuse Treatment, Cognitive-Behavioral (ICD-10-PCS; principal; 2018-06-23)
DX: F10.20 Alcohol dependence, uncomplicated (principal); F14.20 Cocaine dependence, uncomplicated; F12.20 Cannabis dependence, uncomplicated; F17.210 Nicotine dependence, cigarettes, uncomplicated; F19.282 Other psychoactive substance dependence with psychoactive substance-induced sleep disorder; F19.24 Other psychoactive substance dependence with psychoactive substance-induced mood disorder; F20.9 Schizophrenia, unspecified; K13.79 Other lesions of oral mucosa; Z59.0 Homelessness